=== PATIENT | male | born 1940 | race Caucasian/White ===

== ENCOUNTER → 2016-06-08 | Outpatient (CLI) | payer MEDICARE ==
[2016-06-08 11:33] LABS: ALT 37 U/L (21-72); AST 21 U/L (17-59); Alkaline Phosphatase 87 U/L (38-126); Anion Gap 10 mmol/L; Blood Urea Nitrogen 18 mg/dL (9-20); Calcium 8.7 mg/dL (8.4-10.2); Carbon Dioxide 25 mmol/L (22-30); Chloride 106 mmol/L (98-107); Cholesterol 190 mg/dL (<200); Glucose 98 mg/dL (74-99); HDL Cholesterol 45 mg/dL (40-60); Non-African American GFR(MDRD) >60 (>60 ml/min/1.73 sqM); Potassium 4.5 mmol/L (3.5-5.1); Sodium 141 mmol/L (137-145); Total Bilirubin 0.7 mg/dL (0.2-1.3); Total Protein 6.6 g/dL (6.3-8.2); Triglycerides 121 mg/dL (<150)
== END | disposition home or self-care (01) ==
LOC: LABWHC1 10:42
PROVIDERS: ATTEND Internal Medicine Interventional Cardiology
DX: E78.2 Mixed hyperlipidemia (principal)
CPT/HCPCS: 36415; 80053; 80061

== ENCOUNTER → 2016-12-30 | Outpatient (CLI) | payer MEDICARE ==
[2016-12-30 10:43] LABS: ALT 37 U/L (21-72); AST 24 U/L (17-59); Cholesterol 146 mg/dL (<200); HDL Cholesterol 48 mg/dL (40-60); Triglycerides 77 mg/dL (<150)
== END | disposition home or self-care (01) ==
LOC: LABWHC1 09:56
PROVIDERS: ATTEND Internal Medicine Interventional Cardiology
DX: E78.2 Mixed hyperlipidemia (principal)
CPT/HCPCS: 36415; 80061; 84450; 84460

== ENCOUNTER → 2017-03-29 | Outpatient (CLI) | payer MEDICARE ==
[2017-03-29 16:21] LABS: CH 32.5; CHCM 33.1; HCT 46.5 % (39.0-53.0); HDW 2.62; MCHC 32.3 g/dL (31.0-37.0); MCV 98.9 fL (80.0-100.0); Mean Platelet Volume 6.6; RDW 13.6 % (11.5-15.5); WBC 7.5 k/uL (3.8-10.6)
[2017-03-29 16:37] LABS: ALT 39 U/L (21-72); AST 26 U/L (17-59); Alkaline Phosphatase 106 U/L (38-126); Anion Gap 8 mmol/L; Blood Urea Nitrogen 20 mg/dL (9-20); Calcium 8.9 mg/dL (8.4-10.2); Carbon Dioxide 25 mmol/L (22-30); Chloride 107 mmol/L (98-107); Glucose 95 mg/dL (74-99); Non-African American GFR(MDRD) >60 (>60 ml/min/1.73 sqM); Potassium 4.7 mmol/L (3.5-5.1); Sodium 140 mmol/L (137-145); Total Bilirubin 0.4 mg/dL (0.2-1.3); Total Protein 6.9 g/dL (6.3-8.2)
== END | disposition home or self-care (01) ==
LOC: LABWHC1 16:05
PROVIDERS: ATTEND Internal Medicine Interventional Cardiology
DX: I48.1 Persistent atrial fibrillation (principal)
CPT/HCPCS: 36415; 80053; 84443; 85027

== ENCOUNTER 2017-04-13 07:28 | Day surgery (SDC) | payer MEDICARE ==
[2017-04-07 13:57] VITALS: BMI 34.9
[~2017-04-13 07:28] MED LIST: LACTATED RINGERS 1,000 ML IV SCH; SODIUM CHLORIDE 0.9% 1,000 ML IV SCH
[2017-04-13] MEDS ORDERED: LIDOCAINE 1% INJ 10MG/ML (20 ML MDV) ONE (08:52)
[2017-04-13] MEDS ORDERED: PROPOFOL 10 MG/ML 20 ML VIAL IV ONE (08:52)
[2017-04-13] MEDS ORDERED: MIDAZOLAM 2 MG/2 ML VIAL ONE (08:52)
[2017-04-13] MEDS ORDERED: SODIUM CHLORIDE 0.9% 500 ML IV ONE (09:02)
[2017-04-13] MEDS: BENZOCAINE SPRAY 1 CAN MUCOUS MEM ONE ×2 (09:16→09:24)
[2017-04-13] MEDS ORDERED: ACETAMINOPHEN TAB 500 MG TAB PO PRN (09:53)
[2017-04-13] MEDS ORDERED: ISOSORBIDE MONONITRATE ER 30 MG TAB.ER.24H PO PRN (09:53)
[2017-04-13] MEDS ORDERED: NITROGLYCERIN SL TABS 0.4 MG TAB SUBLINGUAL PRN (09:53)
[2017-04-13] MEDS ORDERED: LISINOPRIL 5 MG TAB PO PRN (09:53)
[2017-04-13] MEDS ORDERED: SODIUM CHLORIDE 0.9% 1,000 ML IV SCH (10:00)
[2017-04-13 10:08] VITALS: TEMP 97
[2017-04-13 10:09] VITALS: RESP 16
--- NOTE | 2017-04-13 10:32 | ECHOT ---
TRANSESOPHAGEAL ECHOCARDIOGRAM INDICATION: Evaluation of the left atrial appendage. PROCEDURE: After explaining the procedure to the patient, it's risks and complications, after obtaining sedated state per Anesthesia Department, the probe was introduced into the esophagus without difficulty. Images were obtained. Following that, the probe was removed. There was no immediate complication. FINDINGS: Left atrial size is dilated. Spontaneous contrast was noted. Left atrial appendage appears to be normal. Left ventricular size is normal. There is evidence of mild global hypokinesis. Estimated ejection fraction 45% to 50%. The aortic valve with mild fibrocalcific change with the cusp with preserved opening. Mitral valve, tricuspid, and pulmonic valve appear to be normal. Descending thoracic aorta appears to be normal. No pericardial effusion was noted. Contrast bubble study showed no shunting across the interatrial septum. Doppler pulse wave obtained and revealed mild mitral, with moderate tricuspid regurgitation and no evidence of pulmonary hypertension. Mild pulmonic regurgitation was noted. There was no shunting by color Doppler study. CONCLUSION: 1. Dilated left atrium with spontaneous contrast and normal appearance of left atrial appendage. 2. Normal left ventricular size with mild global hypokinesis. 3. Mild mitral with moderate tricuspid regurgitation and mild pulmonary regurgitation. 4. No shunting across the intra-atrial septum. MMODL / IJN: [id number] /
[2017-04-13] MEDS: AMIODARONE 200 MG TAB PO SCH ×2 (10:36→10:59)
--- NOTE | 2017-04-13 11:02 | CE ---
CARDIAC ELECTROPHYSIOLOGY REPORT INDICATION: Atrial fibrillation. PROCEDURE: After explaining the procedure to the patient, it's risks and complication and after obtaining sedated state by the Anesthesia Department, a synchronized biphasic cardioversion using 200, 300 and 360 joules were performed with inability to restore sinus mechanism. There was no immediate complication. LUCIANO / JOSE ANGEL: [id number] /
[2017-04-13 16:50] VITALS: BP 160/80; PULSE 60
[2017-04-13] MEDS ORDERED: METOPROLOL SUCCINATE (ER) 50 MG TAB.ER.24H PO SCH (21:00)
[2017-04-13] MEDS ORDERED: NON-FORMULARY DRUG (Rivaroxaban [Xarelto] 20 MG) PO SCH (21:00)
[2017-04-13] MEDS ORDERED: NON-FORMULARY DRUG (Aspirin Ec 81 MG) PO SCH (21:00)
[2017-04-13] MEDS ORDERED: [UNRECOGNIZED DRUG - OTHER] PO SCH (21:00)
[2017-04-13] MEDS ORDERED: PRAVASTATIN SODIUM 20 MG TAB PO SCH (21:00)
[2017-04-14] MEDS ORDERED: amLODIPine 10 MG TAB PO SCH (09:00)
[2017-04-14] MEDS ORDERED: NON-FORMULARY DRUG (Calcium Carbonate [Calcium] 1 TAB) PO SCH (09:00)
[2017-04-14] MEDS ORDERED: [UNRECOGNIZED DRUG - OTHER] PO SCH (09:00)
[2017-04-14] MEDS ORDERED: UBIDECARENONE PO SCH (09:00)
== END 2017-04-13 11:45 | disposition home or self-care (01) ==
LOC: CATHCVL 07:28
PROVIDERS: ATTEND Internal Medicine Interventional Cardiology
DX: I48.1 Persistent atrial fibrillation (principal); I08.1 Rheumatic disorders of both mitral and tricuspid valves; I37.1 Nonrheumatic pulmonary valve insufficiency; I25.10 Atherosclerotic heart disease of native coronary artery without angina pectoris; Z95.5 Presence of coronary angioplasty implant and graft; I10 Essential (primary) hypertension; E78.5 Hyperlipidemia, unspecified; Z82.49 Family history of ischemic heart disease and other diseases of the circulatory system; G47.30 Sleep apnea, unspecified; Z99.89 Dependence on other enabling machines and devices; Z79.01 Long term (current) use of anticoagulants; Z79.82 Long term (current) use of aspirin; Z79.899 Other long term (current) drug therapy; Z88.0 Allergy status to penicillin; Z88.8 Allergy status to other drugs, medicaments and biological substances
CPT/HCPCS: 93312; 93320; 93325; 92960; J2250; J2001; J2704

== ENCOUNTER → 2017-08-08 | Outpatient (CLI) | payer MEDICARE ==
[2017-08-08 10:40] LABS: HCT 45.2 % (39.0-53.0); HGB 14.7 gm/dL (13.0-17.5); MCH 31.1 pg (25.0-35.0); MCHC 32.6 g/dL (31.0-37.0); MCV 95.7 fL (80.0-100.0); Mean Platelet Volume 7.1; Platelet Count 143 k/uL (150-450); RBC 4.73 m/uL (4.30-5.90); WBC 6.5 k/uL (3.8-10.6)
[2017-08-08 10:46] LABS: Anion Gap 9 mmol/L; Blood Urea Nitrogen 20 mg/dL (9-20); Calcium 8.8 mg/dL (8.4-10.2); Carbon Dioxide 30 mmol/L (22-30); Chloride 103 mmol/L (98-107); Glucose 103 mg/dL (74-99); Potassium 4.6 mmol/L (3.5-5.1); Sodium 142 mmol/L (137-145)
== END | disposition home or self-care (01) ==
LOC: LABWHC1 10:03
PROVIDERS: ATTEND Internal Medicine Clinical Cardiac Electrophysiology
DX: I48.1 Persistent atrial fibrillation (principal); I42.8 Other cardiomyopathies
CPT/HCPCS: 36415; 80048; 85027

== ENCOUNTER 2017-08-22 10:45 | Day surgery (SDC) | payer MEDICARE ==
[2017-08-16 12:24] VITALS: BMI 34.7
[~2017-08-22 10:45] MED LIST changes: +MIDAZOLAM 2 MG/2 ML VIAL IV PRN; +fentaNYL (PF) 50 MCG/ML 2 ML AMP IV PRN
[2017-08-22] MEDS ORDERED: HEPARIN SODIUM,PORCINE 5,000 UNIT/ML 1 ML VIAL ONE (12:09)
[2017-08-22] MEDS ORDERED: PROTAMINE SULFATE 10 MG/ML 5 ML VIAL IV ONE (12:09)
[2017-08-22] MEDS ORDERED: fentaNYL (PF) 50 MCG/ML 2 ML AMP ONE (12:09)
[2017-08-22] MEDS ORDERED: ePHEDrine SULFATE/0.9% NACL/PF 50 MG/5 ML SYRINGE IV ONE (12:09)
[2017-08-22] MEDS ORDERED: MIDAZOLAM 2 MG/2 ML VIAL ONE (12:09)
[2017-08-22] MEDS ORDERED: PROPOFOL 10 MG/ML 20 ML VIAL IV ONE (12:09)
[2017-08-22] MEDS ORDERED: FUROSEMIDE 10 MG/ML 2 ML VIAL ONE (12:09)
[2017-08-22] MEDS ORDERED: SUCCINYLCHOLINE CHLORIDE 100 MG/5 ML SYR IV ONE (12:09)
[2017-08-22] MEDS ORDERED: LIDOCAINE 1% INJ 10MG/ML (20 ML MDV) ONE (12:09)
[2017-08-22] MEDS ORDERED: HEPARIN SOD,PORK IN 0.45% NACL 25,000 UNIT in 0.45% NACL 1 500ML.BAG IV ONE (13:45)
[2017-08-22] MEDS ORDERED: IOHEXOL 350 MG/ML (PER ML) 100ML BTL INJ ONE (16:00)
--- NOTE | 2017-08-22 16:38 | P.PCN ---
Preoperative Diagnosis: Procedures performed ([facility]I - CRYO Ablation) Invasive hemodynamic monitoring while general anesthesia, right femoral arterial line for monitoring and sampling Comprehensive diagnostic EP study with attempted arrhythmia induction CS pacing and recording Drug infusion Catheter the mapping of the tachycardia (NOT 3D mapping) Intracardiac echocardiography Pulmonary vein isolation with transseptal and comprehensive EPS, [id number] Additional linear ablation left atrial roof, [id number] Procedure details Patient was brought to the EP lab in a fasting state. Written informed consent was obtained prior to the procedure. Procedure performed under general anesthesia After initial muscle relaxant use, muscle relaxants were not given thereafter in order to assess phrenic nerve during procedure Patient prepped and draped as per protocol Full cryo-set up with standard preparation of the cryoablation tools done Femoral Venous access obtained on the right and left groins Sheaths placed Diagnostic catheters for the high right atrium, phrenic nerve stimulation and pacing, His bundle, RV and coronary sinus placed Intracardiac echo catheter placed Long sheath placed in the right atrium Left and right transseptal catheterization performed under intracardiac echo guidance Intravenous heparin with aCT above 300 Later, catheter positioning and balloon positioning under intracardiac echo Baseline measurements Initially patient was in atrial fibrillation Later PA interval 172 ms, QRS 95 ms, QT 466 ms sinus cycle length 1048 AH interval 56, HV 58 Comprehensive diagnostic EP study with drug infusion Atrial pacing performed from the high right atrium and the coronary sinus AV node Wenckebach block between 550-600 ms VA Wenckebach block less than 450 ms Transseptal catheterization performed RA pressure 15/7/11 LA pressure is 23/7/14 Transseptal catheterization performed with standard sheath. The cryoablation sheath was then placed with an over the wire exchange without any acute complications. All 4 pulmonary veins were isolated in the following sequence: Left superior followed by left inferior followed by right superior followed by right inferior The cryo-ablation balloon was placed at the os of each vein 1.5 mL of IV dye was injected to confirm an occluded vein Goal during cryoablation was to achieve -30C in the first 30 seconds. If not the balloon was repositioned to obtain this result After completion of Cryoblation with durations from 180-240 seconds, entrance block was confirmed with the Attain circular catheter in a roving fashion around the antrum of the pulmonary veins Phrenic nerve pacing was performed from the SVC, right innominate vein area and diaphragm voltage was monitored as well as manually Parameter goals for each cryo freeze -30C by 30 seconds -40C by 60 seconds Mediated between minus 40-55 Thaw time greater than 10 seconds Balloon visualized by intracardiac echo to ensure that the proximal one third was within the left atrium/antrum Left superior pulmonary vein 2 cryo lesions 180 followed by 120 seconds Complete isolation of the left superior Left inferior pulmonary vein 2 cryo lesions 180 followed by 180 seconds Complete isolation with entrance block Right superior pulmonary vein, during phrenic nerve pacing Single cryoablation 240 seconds, time to effect less than 37 seconds Right inferior pulmonary vein, during phrenic nerve pacing Single cryoablation of 240 seconds complete isolation Roofline/linear ablation in the left atrium 3 cryo lesions on the roof, 2 minutes each Organization of atrial fibrillation noted with Cryoblation's Fractionated electrograms along the anterior wall of the left atrium noted during mapping with achieve catheter Electrical cardioversion 360 J biphasic shock, successful conversion to sinus rhythm At the end of the procedure the Achieve catheter was once again used to check for entrance block Phrenic nerve stimulation was performed to confirm diaphragmatic stimulation the end of the procedure Cine fluoroscopy was performed at the very end of the procedure to confirm movement of both diaphragms with inspiration and expiration At the end of the procedure the patient was extubated Heparin was reversed Venous sheaths were removed and hemostasis assured Result Successful pulmonary vein isolation using cryo-ablation Complete entrance block in all 4 veins confirmed No evidence for phrenic nerve injury No significant drop in esophageal temperature. Esophageal deflection not needed Roofline made in the left atrial roof. Drop in temperature with leftward cryo lesion on the roof. Esophagus deflected
[2017-08-22] MEDS ORDERED: ACETAMINOPHEN TAB 325 MG TAB PO PRN (17:29)
[2017-08-22] MEDS ORDERED: HYDROcodone/APAP 5-325MG 1 EACH TAB PO PRN (17:29)
[2017-08-22] MEDS ORDERED: ACETAMINOPHEN IV (For NPO) 1,000 MG in EMPTY BAG 1 BAG IVPB ONE (17:29)
[2017-08-22] MEDS ORDERED: ISOSORBIDE MONONITRATE ER 30 MG TAB.ER.24H PO PRN (17:30)
[2017-08-22] MEDS ORDERED: LISINOPRIL 5 MG TAB PO PRN (17:30)
[2017-08-22] MEDS ORDERED: PANTOPRAZOLE 40 MG TABLET PO PRN (17:30)
[2017-08-22] MEDS ORDERED: RIVAROXABAN 20 MG TAB PO SCH (21:00)
[2017-08-22] MEDS ORDERED: ASPIRIN 81 MG PO SCH (21:00)
[2017-08-22] MEDS ORDERED: METOPROLOL SUCCINATE (ER) 25 MG TAB.ER.24H PO SCH (21:00)
[2017-08-22] MEDS: PRAVASTATIN SODIUM 20 MG TAB PO SCH (21:56)
[2017-08-22] MEDS: AMIODARONE 100 MG TAB PO SCH (21:56)
[2017-08-23] MEDS: AMIODARONE 100 MG TAB PO SCH (08:17)
[2017-08-23] MEDS: PRAVASTATIN SODIUM 20 MG TAB PO SCH (08:19)
[2017-08-23] MEDS ORDERED: amLODIPine 10 MG TAB PO SCH (09:00)
[2017-08-23] MEDS ORDERED: POTASSIUM CHLORIDE ER 10 MEQ TAB.ER.PRT PO SCH (09:00)
[2017-08-23] MEDS ORDERED: METOPROLOL SUCCINATE (ER) 25 MG TAB.ER.24H PO SCH (09:00)
[2017-08-23] MEDS ORDERED: FUROSEMIDE 20 MG TAB PO SCH (09:00)
--- NOTE | 2017-08-23 13:20 | P.DS ---
Providers Attending physician: Apollo Garland Primary care physician: Rico Jiménez [facility] Course: Patient is doing well from a chronic standpoint. He denies any chest discomfort no shortness of breath dizziness or palpitations. He did have a bit of hematuria and pain in his urethra but this is now resolved The was regular heart sounds are normal breath sounds are clear groins of healed well no rhonchi no crackles over the lung servin. No murmurs no gallop over the precordium Abdomen soft nontender No extremity edema Telemetry shows sinus rhythm Impression Persistent atrial fibrillation number symptomatic Failed electrical cardioversion x2 on amiodarone Coronary artery disease status post coronary stenting Mild cardio myopathy a 45-50% during atrial fibrillation Obstructive sleep apnea uses CPAP mask regularly Status post isolation of all 4 pulmonary veins, cryoablation Status post roofline in the left atrium Fractionated signals along the anterior wall of the left atrium Plan Continue antihypertensive therapy with amlodipine and lisinopril Continue Xarelto Continue statins and aspirin Continue statins Reduce metoprolol succinate to 25 mg by mouth daily in the morning Start amiodarone 100 mg by mouth daily Follow-up with Dr. Dr. Alexander in about [address] Jiménez as scheduled Plan - Discharge Summary Discharge Rx Participant: No New Discharge Prescriptions: New Amiodarone [Cordarone] 100 mg PO DAILY #90 tab Continue Aspirin EC [Ecotrin Low Dose] 81 mg PO HS amLODIPine BESYLATE [Norvasc] 10 mg PO QA [facility] 1 tab PO BID Acetaminophen Tab [Tylenol] 500 mg PO Q6H PRN PRN Reason: Pain Nitroglycerin (Unknown Dose) 0.4 mg SL DIRECTED PRN PRN Reason: Chest Pain Pravastatin Sodium [Pravachol] 20 mg PO BID Margaux Ana With Iron 1 gram PO DAILY Lisinopril [Zestril] 5 mg PO DAILY PRN PRN Reason: SYSTOLIC BP ABOVE 140 Isosorbide Mononitrate [Isosorbide Mononitrate ER] 30 mg PO DAILY PRN PRN Reason: CHEST PRESSURE Rivaroxaban [Xarelto] 20 mg PO HS Metoprolol Succinate (ER) [Toprol XL] 50 mg PO HS Potassium Chloride ER [K-Dur 10] 10 meq PO DAILY Furosemide [Lasix] 20 mg PO DAILY Omeprazole 20 mg PO AC-BRKFST PRN PRN Reason: Indigestion [place]-3/Dha/Epa/Fish Oil [Fish Oil 500 mg Softgel] 1 each PO DAILY Multivitamin [Men's Multi-Vitamin] 1 each PO DAILY Discharge Medication List Acetaminophen Tab [Tylenol] 500 mg PO Q6H PRN 12/17/13 [History] Aspirin EC [Ecotrin Low Dose] 81 mg PO HS 12/17/13 [History] Joint Health Complex 1 tab PO BID 12/17/13 [History] Nitroglycerin (Unknown Dose) 0.4 mg SL DIRECTED PRN 12/17/13 [History] amLODIPine BESYLATE [Norvasc] 10 mg PO QAM 12/17/13 [History] Pravastatin Sodium [Pravachol] 20 mg PO BID 03/10/16 [History] Margaux Ana With Iron 1 gram PO DAILY 03/10/16 [History] Isosorbide Mononitrate [Isosorbide Mononitrate ER] 30 mg PO DAILY PRN 03/30/17 [ History] Lisinopril [Zestril] 5 mg PO DAILY PRN 03/30/17 [History] Rivaroxaban [Xarelto] 20 mg PO HS 04/13/17 [History] Furosemide [Lasix] 20 mg PO DAILY 05/18/17 [History] Metoprolol Succinate (ER) [Toprol XL] 50 mg PO HS 05/18/17 [History] Potassium Chloride ER [K-Dur 10] 10 meq PO DAILY 05/18/17 [History] Multivitamin [Men's Multi-Vitamin] 1 each PO DAILY 08/16/17 [History] [place]-3/Dha/Epa/Fish Oil [Fish Oil 500 mg Softgel] 1 each PO DAILY 08/16/17 [ History] Omeprazole 20 mg PO AC-BRKFST PRN 08/16/17 [History] Amiodarone [Cordarone] 100 mg PO DAILY #90 tab 08/23/17 [Rx] Follow up Appointment(s)/Referral(s): Annalee Alexnader MD [STAFF PHYSICIAN] - 1 Week (Appointment made for groin check on TuesdayAugust 30 @ 10:30am.) Rico Jiménez DO [Primary Care Provider] - 3 Weeks Activity/Diet/Wound Care/Special Instructions: Post EP study - Ablation instructions 1. Keep access sites dry for 2 days. 2. No heavy lifting or straining for 2 days. 3. Avoid bending the hips repeatedly for 2 days. 4. You may go up and down stairs slowly Call if the following is noted 1. Bleeding, increasing swelling or pain at the access sites. 2. Increasing chest discomfort, especially upon taking a deep breath. 3. Increasing shortness of breath, at rest or with exertion. 4. Undue cough / phlegm 5. Difficulty or pain while swallowing. 6. Pain or change in color in the extremities. 7. Fever, chills, rigors. 8. Increasing headache or neurologic symptoms. 9. Dizziness, fainting, palpitations Continue Xarelto lifelong
[2017-08-23 15:50] VITALS: BP 133/63; PULSE 70; RESP 17; TEMP 98.2
[2017-08-23] MEDS ORDERED: METOPROLOL SUCCINATE (ER) 50 MG TAB.ER.24H PO SCH (21:00)
== END 2017-08-23 18:26 | disposition home or self-care (01) ==
LOC: CATHEP 10:45 → 3OBS 17:24 → CATHEP 08-23 18:26
PROVIDERS: ATTEND Internal Medicine Clinical Cardiac Electrophysiology
DX: I48.1 Persistent atrial fibrillation (principal); R31.9 Hematuria, unspecified; I25.10 Atherosclerotic heart disease of native coronary artery without angina pectoris; Z95.5 Presence of coronary angioplasty implant and graft; G47.33 Obstructive sleep apnea (adult) (pediatric); Z99.89 Dependence on other enabling machines and devices; I42.9 Cardiomyopathy, unspecified; I10 Essential (primary) hypertension; E78.2 Mixed hyperlipidemia; K21.9 Gastro-esophageal reflux disease without esophagitis; Z79.01 Long term (current) use of anticoagulants; Z79.82 Long term (current) use of aspirin; Z79.899 Other long term (current) drug therapy; Z79.02 Long term (current) use of antithrombotics/antiplatelets; Z82.49 Family history of ischemic heart disease and other diseases of the circulatory system; Z88.0 Allergy status to penicillin; Z88.8 Allergy status to other drugs, medicaments and biological substances; Z88.7 Allergy status to serum and vaccine
CPT/HCPCS: 85347; 93662; 93609; 93656; 92960; C1769 ×4; C1894 ×2; C1730 ×3; C1759; C1893; C1733; C1766; J2250; J2720; J1644 ×2; J1940; Q9967; J2001; J3010; J0330; J2704

== ENCOUNTER → 2017-09-29 | Outpatient (CLI) | payer MEDICARE ==
[2017-09-29 13:47] LABS: Potassium 4.4 mmol/L (3.5-5.1); Total Bilirubin 0.7 mg/dL (0.2-1.3); Total Protein 6.5 g/dL (6.3-8.2)
== END | disposition home or self-care (01) ==
LOC: LABWHC1 12:16
PROVIDERS: ATTEND Internal Medicine Interventional Cardiology
DX: E78.2 Mixed hyperlipidemia (principal)
CPT/HCPCS: 36415; 80053; 80061

== ENCOUNTER 2017-10-18 05:58 | Day surgery (SDC) | payer MEDICARE ==
[2017-10-14 08:55] VITALS: BMI 36.1
[2017-10-18] MEDS ORDERED: SODIUM CHLORIDE 0.9% 1,000 ML IV SCH ×2 (06:02→07:30)
[2017-10-18] MEDS ORDERED: PROPOFOL 10 MG/ML 20 ML VIAL IV ONE (06:56)
[2017-10-18] MEDS ORDERED: fentaNYL (PF) 50 MCG/ML 2 ML AMP ONE (06:56)
[2017-10-18] MEDS ORDERED: LIDOCAINE 1% INJ 10MG/ML (20 ML MDV) ONE (06:56)
[2017-10-18] MEDS ORDERED: SODIUM CHLORIDE 0.9% 500 ML IV ONE ×2 (07:03)
[2017-10-18] MEDS ORDERED: NON-FORMULARY DRUG (Omeprazole [Omeprazole] 20 MG) PO PRN (07:31)
[2017-10-18] MEDS ORDERED: ACETAMINOPHEN TAB 500 MG TAB PO PRN (07:31)
[2017-10-18] MEDS ORDERED: NITROGLYCERIN SL TABS 0.4 MG TAB SUBLINGUAL PRN (07:31)
[2017-10-18 07:42] VITALS: TEMP 97.8
--- NOTE | 2017-10-18 08:19 | CE ---
CARDIAC ELECTROPHYSIOLOGY REPORT CARDIOVERSION PROCEDURE NOTE: INDICATION: Atrial fibrillation. PROCEDURE: After explaining the procedure to the patient, its risks and complications, blood pressure, heart rate and O2 saturation were monitored. After obtaining sedated state per Anesthesia Department, a synchronized biphasic cardioversion using 200 joules was unsuccessful in restoring sinus mechanism. Second cardioversion using 275 synchronized joules were successful in restoring sinus mechanism. There was no immediate complication. LUCIANO / REEDN: [id number] /
[2017-10-18 08:51] VITALS: PULSE 66
[2017-10-18 08:54] VITALS: RESP 18
[2017-10-18] MEDS ORDERED: [UNRECOGNIZED DRUG - OTHER] PO SCH (09:00)
[2017-10-18] MEDS ORDERED: FISH OIL PO SCH (09:00)
[2017-10-18] MEDS ORDERED: ISOSORBIDE MONONITRATE ER 30 MG TAB.ER.24H PO SCH (09:00)
[2017-10-18] MEDS ORDERED: FUROSEMIDE 20 MG TAB PO SCH (09:00)
[2017-10-18] MEDS ORDERED: AMIODARONE 100 MG TAB PO SCH (09:00)
[2017-10-18] MEDS ORDERED: [UNRECOGNIZED DRUG - OTHER] PO SCH (09:00)
[2017-10-18] MEDS ORDERED: POTASSIUM CHLORIDE ER 10 MEQ TAB.ER.PRT PO SCH (09:00)
[2017-10-18] MEDS ORDERED: PRAVASTATIN SODIUM 20 MG TAB PO SCH (09:00)
[2017-10-18] MEDS ORDERED: LISINOPRIL 5 MG TAB PO SCH (09:00)
[2017-10-18] MEDS ORDERED: DHA PO SCH (09:00)
[2017-10-18] MEDS ORDERED: EPA PO SCH (09:00)
[2017-10-18] MEDS ORDERED: NON-FORMULARY DRUG (Multivitamin [Men's Multi-Vitamin] 1 EACH) PO SCH (09:00)
[2017-10-18] MEDS ORDERED: amLODIPine 10 MG TAB PO SCH (09:00)
[2017-10-18] MEDS ORDERED: OMEGA PO SCH (09:00)
[2017-10-18 09:43] VITALS: BP 118/72
[2017-10-18] MEDS ORDERED: METOPROLOL SUCCINATE (ER) 25 MG TAB.ER.24H PO SCH (21:00)
[2017-10-18] MEDS ORDERED: NON-FORMULARY DRUG (Aspirin Ec 81 MG) PO SCH (21:00)
[2017-10-18] MEDS ORDERED: RIVAROXABAN 20 MG TAB PO SCH (21:00)
== END 2017-10-18 09:35 | disposition home or self-care (01) ==
LOC: CATHCVL 05:58
PROVIDERS: ATTEND Internal Medicine Interventional Cardiology
DX: I48.1 Persistent atrial fibrillation (principal); R00.1 Bradycardia, unspecified; I44.0 Atrioventricular block, first degree; I25.10 Atherosclerotic heart disease of native coronary artery without angina pectoris; E78.2 Mixed hyperlipidemia; I10 Essential (primary) hypertension; G47.33 Obstructive sleep apnea (adult) (pediatric); M19.90 Unspecified osteoarthritis, unspecified site; H91.90 Unspecified hearing loss, unspecified ear; K21.9 Gastro-esophageal reflux disease without esophagitis; I25.2 Old myocardial infarction; Z99.89 Dependence on other enabling machines and devices; Z95.5 Presence of coronary angioplasty implant and graft; Z82.49 Family history of ischemic heart disease and other diseases of the circulatory system; Z79.01 Long term (current) use of anticoagulants; Z79.82 Long term (current) use of aspirin; Z79.899 Other long term (current) drug therapy; Z90.49 Acquired absence of other specified parts of digestive tract; Z88.0 Allergy status to penicillin; Z88.8 Allergy status to other drugs, medicaments and biological substances; Z88.7 Allergy status to serum and vaccine
CPT/HCPCS: 92960; J2001; J3010; J2704; 93005

== ENCOUNTER → 2018-01-18 | Outpatient (CLI) | payer MEDICARE ==
[2018-01-18 11:01] LABS: Albumin 3.9 g/dL (3.5-5.0); Calcium 8.8 mg/dL (8.4-10.2); Potassium 4.4 mmol/L (3.5-5.1); Total Bilirubin 0.7 mg/dL (0.2-1.3); Total Protein 6.6 g/dL (6.3-8.2)
== END | disposition home or self-care (01) ==
LOC: LABWHC1 09:58
PROVIDERS: ATTEND Internal Medicine Interventional Cardiology
DX: E78.2 Mixed hyperlipidemia (principal); D48.1 Neoplasm of uncertain behavior of connective and other soft tissue
CPT/HCPCS: 36415; 80053; 80061; 84443

== ENCOUNTER 2018-12-06 07:54 | Day surgery (SDC) | payer MEDICARE ==
[2018-12-04 10:49] VITALS: BMI 31.3
[~2018-12-06 07:54] MED LIST changes: +LIDOCAINE 1% 20 ML VIAL (10MG/ML) FOR IV START INTRADERMA PRN; +LIDOCAINE 1% INJ 10MG/ML (20 ML MDV) ONE; -MIDAZOLAM 2 MG/2 ML VIAL IV PRN; +PROPOFOL 10 MG/ML 20 ML VIAL IV ONE; -SODIUM CHLORIDE 0.9% 1,000 ML IV SCH; -fentaNYL (PF) 50 MCG/ML 2 ML AMP IV PRN
[2018-12-06] MEDS ORDERED: LACTATED RINGERS 1,000 ML IV ONE (08:21)
--- NOTE | 2018-12-06 08:30 | P.GSHP ---
History of Present Illness H&P Date: 12/06/18 Chief Complaint: Screening, history of adenomatous colon polyp 77-year-old male presents for colonoscopy. Last colonoscopy 2011. Was found to have a descending colon polyp that was excised. History of previous adenomatous as well. No new complaints. Past Medical History Past Medical History: Atrial Fibrillation, Chest Pain / Angina, Hearing Disorder / Deafness, Hyperlipidemia, Hypertension, Myocardial Infarction ([place]), Osteoarth ritis (OA), Pneumonia, Sleep Apnea/CPAP/BIPAP, Thyroid Disorder Additional Past Medical History / Comment(s): OH AT 28 YRS OLD. C PAP MACHINE Last Myocardial Infarction Date:: 1966 History of Any Multi-Drug Resistant Organisms: None Reported Past Surgical History: Appendectomy, Bowel Resection, Cardiac Ablation, Heart Catheterization, Heart Catheterization With Stent, Orthopedic Surgery Additional Past Surgical History / Comment(s): COLON RESECTION WITH REMOVAL OF BENIGN TUMOR, RT ROTATOR CUFF, SKIN GRAFTS TO 3RD DEGREE ADAMS ON CHEST AND RT SIDE AT 15 MONTHS OLD, CYST ON BACK OF NECK., Colonoscopy. PTCA WITH STENTS Past Anesthesia/Blood Transfusion Reactions: Previous Problems w/ Anesthesia Additional Past Anesthesia/Blood Transfusion Reaction / Comment(s): "woke up in the middle of shoulder surgery. SEEMS TO REQUIRE MORE ANESTHESIA THAN AVERAGE PERSON." PER PATIENT Date of Last Stent Placement:: 03-11-16 Smoking Status: Never smoker - Past Family History Mother Family Medical History: CVA/TIA Additional Family Medical History / Comment(s): HEART FAILUR Father Family Medical History: Coronary Artery Disease (CAD) Brother(s) Family Medical History: Coronary Artery Disease (CAD), Deep Vein Thrombosis (DVT) Medications and Allergies Home Medications Medication Instructions Recorded Confirmed Type Acetaminophen Tab [Tylenol] 500 mg PO Q6H PRN 12/17/13 12/04/18 History Aspirin EC [Ecotrin Low Dose] 81 mg PO HS 12/17/13 12/04/18 History Joint Health Complex 1 tab PO BID 12/17/13 12/04/18 History amLODIPine BESYLATE [Norvasc] 10 mg PO QAM 12/17/13 12/04/18 History Pravastatin Sodium [Pravachol] 20 mg PO BID 03/10/16 12/04/18 History Rivaroxaban [Xarelto] 20 mg PO HS 04/13/17 12/04/18 History Furosemide [Lasix] 20 mg PO BID 05/18/17 12/04/18 History Metoprolol Succinate (ER) [Toprol 25 mg PO HS 05/18/17 12/04/18 History XL] Potassium Chloride ER [K-Dur 10] 10 meq PO DAILY 05/18/17 12/04/18 History Multivitamin [Men's Multi-Vitamin] 1 each PO DAILY 08/16/17 12/04/18 History Amiodarone [Cordarone] 100 mg PO DAILY #90 tab 08/23/17 12/04/18 Rx Nitroglycerin Sl Tabs [Nitrostat] 0.4 mg SUBLINGUAL Q5M PRN 10/14/17 12/04/18 History Isosorbide Mononitrate [Isosorbide 30 mg PO DAILY #0 10/18/17 12/04/18 Rx Mononitrate ER] Levothyroxine Sodium [Synthroid] 50 mcg PO DAILY 12/04/18 12/04/18 History [place]-3 Fatty Acids/Fish Oil 1 each PO DAILY 12/04/18 12/04/18 History [[place]-3 Fish Oil 1,200 mg Sfgl] Allergies Allergy/AdvReac Type Severity Reaction Status Date / Time Penicillins Allergy Severe Anaphylaxis Verified 12/04/18 10:04 Kmosxqj-Fnn-Vkx Reductase Allergy Severe MUSCLE & Verified 12/04/18 10:04 Inhibitor JOINT PAIN Tetanus Vaccines and Toxoid Allergy Unknown Swelling Verified 12/04/18 10:04 [Tetanus Vaccines & Toxoid] Surgical - Exam Physical exam: General: Well-developed, well-nourished HEENT: Normocephalic, sclerae nonicteric Abdomen: Nontender, nondistended Extremities: No edema Neuro: Alert and oriented Assessment and Plan (1) Colon cancer screening Narrative/Plan: Will proceed with colonoscopy at this time Current Visit: Yes Status: Acute Code(s): Z12.11 - ENCOUNTER FOR SCREENING FOR MALIGNANT NEOPLASM OF COLON SNOMED Code(s): 521966078
[2018-12-06 08:35] VITALS: TEMP 97.3
--- NOTE | 2018-12-06 08:53 | P.PCN ---
Date of Procedure: 12/06/18 Procedure(s) Performed: PREOPERATIVE DIAGNOSIS: Colon cancer screening POSTOPERATIVE DIAGNOSIS: Mild diverticulosis, status post right colectomy PROCEDURE: Colonoscopy ANESTHESIA: MAC SURGEON: Kal Salvador M.D. SPECIMENS: None ENDOSCOPIC PROCEDURE: The patient was placed on the endoscopy table in the left decubitus position. The Olympus colonoscope was inserted into the anus and passed under direct visualization to the mid transverse colon. The anastomosis was widely patent. No abnormalities were identified there. The remainder of the transverse descending sigmoid and rectum appeared normal. There was mild diverticulosis present. Digital rectal examination was normal. The patient was taken to the recovery room in stable condition per anesthesia guidelines. RECOMMENDATIONS: Increase fiber. Follow-up colonoscopy 5 years.
[2018-12-06 09:12] VITALS: BP 150/80; PULSE 55; RESP 18
== END 2018-12-06 09:48 | disposition home or self-care (01) ==
LOC: ORWHC2ENDO 07:54
PROVIDERS: ATTEND Surgery
DX: Z12.11 Encounter for screening for malignant neoplasm of colon (principal); K57.30 Diverticulosis of large intestine without perforation or abscess without bleeding; I10 Essential (primary) hypertension; I48.91 Unspecified atrial fibrillation; I25.119 Atherosclerotic heart disease of native coronary artery with unspecified angina pectoris; I25.2 Old myocardial infarction; E07.9 Disorder of thyroid, unspecified; E78.5 Hyperlipidemia, unspecified; H91.90 Unspecified hearing loss, unspecified ear; M19.90 Unspecified osteoarthritis, unspecified site; Z90.49 Acquired absence of other specified parts of digestive tract; G47.33 Obstructive sleep apnea (adult) (pediatric); Z95.5 Presence of coronary angioplasty implant and graft; Z86.010 Personal history of colon polyps; Z79.891 Long term (current) use of opiate analgesic; Z79.82 Long term (current) use of aspirin; Z79.890 Hormone replacement therapy; Z79.899 Other long term (current) drug therapy; Z79.01 Long term (current) use of anticoagulants; Z88.0 Allergy status to penicillin; Z88.8 Allergy status to other drugs, medicaments and biological substances; Z88.7 Allergy status to serum and vaccine; Z99.89 Dependence on other enabling machines and devices; Z82.49 Family history of ischemic heart disease and other diseases of the circulatory system
CPT/HCPCS: G0105; J2001; J2704

== ENCOUNTER → 2019-10-18 | Outpatient (CLI) | payer MEDICARE ==
--- NOTE | 2019-10-19 07:09 | CT ---
"EXAMINATION TYPE: CT abdomen pelvis wo con DATE OF EXAM: 10/18/2019 HISTORY: Hematuria and difficulty urinating CT DLP: 1034 mGycm. Automated Exposure Control for Dose Reduction was Utilized. TECHNIQUE: CT scan of the abdomen and pelvis is performed without oral or IV contrast. COMPARISON: NONE FINDINGS: Within the limitations of a non-contrast study, the following observations are made. LUNG BASES: There are suspected coronary artery stent in the RCA distribution. Distal to this coronar y artery calcifications are present in the dominant right coronary artery. Patchy areas of groundglas s opacity noted in the periphery of the visualized lower lungs should be correlated clinically for at ypical infections including Covid pneumonia in this current environment. LIVER/GB: No significant abnormality is appreciated. PANCREAS: No significant abnormality is seen. SPLEEN: Occasional scattered punctate calcification throughout the spleen. ADRENALS: Low dense bilateral adrenal masses larger on the right measuring 3.1 x 1.8 cm. Hounsfield u nits less than 10 consistent with benign lipid rich adenomas. KIDNEYS: No renal calculi or hydronephrosis is seen bilaterally. No intraluminal calculi in poorly di stended bladder. Mild concentric wall thickening presumed related to outlet obstruction from BPH. BOWEL: Diverticula in the left and sigmoid colon. Surgical changes from right-sided partial colectomy and side to side small bowel anastomosis identified. No suspicious small or large bowel dilatation. GENITAL ORGANS: Markedly enlarged prostate gland bulging on bladder base consistent with BPH. Some ri ght central posterior calcifications incidentally seen. LYMPH NODES: No greater than 1cm abdominal or pelvic lymph nodes are appreciated. OSSEOUS STRUCTURES: Moderate multilevel spurring and disc space narrowing throughout the thoracolumba r spine. Multilevel vacuum disc phenomenon. Most prominent disc space narrowing L4-L5 level. Moderate to severe narrowing in both hip joints. OTHER: Tiny fat-containing left inguinal hernia. Overlying vertical scar in the midline of the anteri or abdominal wall. Mild to moderate calcified plaque of the abdominal aorta extends into branch vesse ls. IMPRESSION: 1. Source of hematuria not identified. Further investigation with contrast-enhanced CT is advised to further assess. 2. Significantly enlarged prostate consistent with BPH. 3. Small multifocal areas of groundglass opacity in the visualized periphery of the lung bases, canno t exclude atypical infection such as Covid type pneumonia in current clinical climate. Correlate clin ically. A Yellow level critical message alert has been initiated for Dominick Estevez MD via the [employer] | Critical Results System on 10/19/2019 7:06 AM. This message alert has been sent to Manuel Elliott via the preferences provided by the clinician for the receipt of Radiology Critical Findings. Dorina LaZure [employer] ID [id number]."
== END | disposition home or self-care (01) ==
LOC: RADCTMAIN 15:03
PROVIDERS: ATTEND Urology
DX: N40.0 Benign prostatic hyperplasia without lower urinary tract symptoms (principal); Z88.0 Allergy status to penicillin; Z88.7 Allergy status to serum and vaccine; Z88.8 Allergy status to other drugs, medicaments and biological substances
CPT/HCPCS: 74176

== ENCOUNTER → 2019-10-31 | Outpatient (CLI) | payer MEDICARE | END | disposition home or self-care (01) | LOC: LABWHC1 07:36 | PROVIDERS: ATTEND Family Medicine | DX: R05 Cough (principal) ==

== ENCOUNTER → 2019-12-18 | Outpatient (CLI) | payer MEDICARE ==
[2019-12-18 17:48] LABS: African American GFR (CKD) 95.1 (60.0-200.0); Albumin 4.1 g/dL (3.80-4.90); Albumin/Globulin Ratio 1.86 (1.60-3.17); Anion Gap 8.5 mmol/L (4.00-12.00); BUN/Creat Ratio 24.44 Ratio (12.00-20.00); Calcium 8.5 mg/dL (8.7-10.3); Carbon Dioxide 22.5 mmol/L (21.6-31.8); Chol/HDL Ratio 2.54; Globulin 2.2 g/dL (1.6-3.3); LDL Cholesterol,Calculated 68.6 mg/dL (0.0-131.0); Non-African American GFR(CKD) 82.1 (60.0-200.0); Potassium 4.5 mmol/L (3.5-5.5); Total Bilirubin 0.6 mg/dL (0.3-1.2); Total Protein 6.3 g/dL (6.2-8.2); VLDL Calculation 11.4 mg/dL (5.00-40.00)
== END | disposition home or self-care (01) ==
LOC: LABWHC1 09:57
PROVIDERS: ATTEND Nurse Practitioner Adult Health
DX: E78.2 Mixed hyperlipidemia (principal); I10 Essential (primary) hypertension
CPT/HCPCS: 36415; 80053; 80061

== ENCOUNTER → 2020-08-14 | Outpatient (CLI) | payer MEDICARE ==
[2020-08-15 03:48] LABS: African American GFR (CKD) 95.1 (60.0-200.0); Albumin 4.2 g/dL (3.80-4.90); Albumin/Globulin Ratio 2.1 (1.60-3.17); Anion Gap 11.9 mmol/L (4.00-12.00); BUN/Creat Ratio 25.56 Ratio (12.00-20.00); Calcium 9.1 mg/dL (8.7-10.3); Carbon Dioxide 21.1 mmol/L (21.6-31.8); Chol/HDL Ratio 3.02; LDL Cholesterol,Calculated 88.8 mg/dL (0.0-131.0); Non-African American GFR(CKD) 82.1 (60.0-200.0); Potassium 4.5 mmol/L (3.5-5.5); Total Bilirubin 0.7 mg/dL (0.2-1.2); Total Protein 6.2 g/dL (6.2-8.2); VLDL Calculation 12.2 mg/dL (5.00-40.00)
== END | disposition home or self-care (01) ==
LOC: LABWHC1 10:20
PROVIDERS: ATTEND Nurse Practitioner Adult Health
DX: E78.2 Mixed hyperlipidemia (principal); I10 Essential (primary) hypertension
CPT/HCPCS: 36415; 80053; 80061

== ENCOUNTER → 2021-01-30 | Outpatient (CLI) | payer MEDICARE ==
[2021-01-30 20:49] LABS: African American GFR (CKD) 83.2 (60.0-200.0); Albumin 4.3 g/dL (3.80-4.90); Albumin/Globulin Ratio 1.79 (1.60-3.17); Anion Gap 8.3 mmol/L (4.00-12.00); Calcium 8.7 mg/dL (8.7-10.3); Carbon Dioxide 23.7 mmol/L (21.6-31.8); Chol/HDL Ratio 2.89; Globulin 2.4 g/dL (1.6-3.3); LDL Cholesterol,Calculated 92.4 mg/dL (0.0-131.0); Non-African American GFR(CKD) 71.8 (60.0-200.0); Total Bilirubin 0.6 mg/dL (0.3-1.2); Total Protein 6.7 g/dL (6.2-8.2); VLDL Calculation 11.6 mg/dL (5.00-40.00)
== END | disposition home or self-care (01) ==
LOC: LABWHC1 09:31
PROVIDERS: ATTEND Internal Medicine Interventional Cardiology
DX: E78.2 Mixed hyperlipidemia (principal); I48.19 Other persistent atrial fibrillation
CPT/HCPCS: 36415; 80053; 80061; 84443

== ENCOUNTER → 2022-01-08 | Outpatient (CLI) | payer MEDICARE ==
[2022-01-08 14:14] LABS: ALT 13 U/L (10-49); AST 21 U/L (14-35); African American GFR (CKD) 93.8 (60.0-200.0); Albumin 4.1 g/dL (3.8-4.9); Albumin/Globulin Ratio 1.71 (1.60-3.17); Alkaline Phosphatase 82 U/L (41-126); BUN/Creat Ratio 16.44 Ratio (12.00-20.00); Blood Urea Nitrogen 14.8 mg/dL (9.0-27.0); Calcium 8.6 mg/dL (8.7-10.3); Carbon Dioxide 22.9 mmol/L (20.0-27.5); Chloride 106 mmol/L (96-109); Chol/HDL Ratio 2.88 Ratio; Globulin 2.4 g/dL (1.6-3.3); Glucose 104 mg/dL (70-110); LDL Cholesterol,Calculated 90.7 mg/dL (0.0-131.0); Non-African American GFR(CKD) 80.9 (60.0-200.0); Potassium 4.1 mmol/L (3.5-5.5); Sodium 138 mmol/L (135-145); Total Protein 6.5 g/dL (6.2-8.2); VLDL Calculation 15.66 mg/dL (5.00-40.00)
== END | disposition home or self-care (01) ==
LOC: LABWHC1 08:35
PROVIDERS: ATTEND Internal Medicine Interventional Cardiology
DX: E78.2 Mixed hyperlipidemia (principal)
CPT/HCPCS: 36415; 80053; 80061

== ENCOUNTER → 2022-04-05 | Outpatient (CLI) | payer MEDICARE ==
--- NOTE | 2022-04-05 15:57 | XR ---
EXAMINATION TYPE: XR Hip Complete LT DATE OF EXAM: 04/05/2022 COMPARISON: None HISTORY: Left hip pain, fall one week prior TECHNIQUE: 2 view left FINDINGS: Femoral head articulates with the acetabulum. Joint space is preserved. No acute fracture o r dislocation is evident. IMPRESSION: 1. No acute osseous abnormality left hip.
== END | disposition home or self-care (01) ==
LOC: RADXRMAIN 13:54
PROVIDERS: ATTEND Nurse Practitioner Family
DX: M25.552 Pain in left hip (principal)
CPT/HCPCS: 73502

== ENCOUNTER → 2023-01-20 | Outpatient (CLI) | payer MEDICARE ==
--- NOTE | 2023-01-20 10:30 | CT ---
EXAMINATION TYPE: CT brain w con CT DLP: 1269 mGycm, Automated exposure control for dose reduction was used. DATE OF EXAM: 01/20/2023 10:23 AM COMPARISON: CT brain 06/20/2014. CLINICAL INDICATION:Male, 82 years old with history of R42 dizziness R53.83 fatigue; PHH, STILL, dizzine ss TECHNIQUE: Axial CT images of the brain were obtained through the uneventful administration of 100 cc of Isovue-300 intravenously One or more CT dose reduction strategies were utilized during this exami nation. Coronal and sagittal reformats reviewed. FINDINGS: Extra-axial spaces: No abnormal extra-axial fluid collections. Ventricular system: Within normal limits Cerebral parenchyma: Cerebral atrophy. No acute intraparenchymal hemorrhage or mass effect. The ryan -white junction is well differentiated. Scattered hypoattenuating areas are seen within the white mat ter. No abnormal enhancement is seen after the administration of intravenous contrast. Cerebellum: Unremarkable. Mass effect: No evidence of midline shift. Intracranial vasculature: unremarkable Soft tissues: Normal. Calvarium/osseous structures: No depressed skull fracture. Paranasal sinuses and mastoid air cells: The mastoid air cells are clear. Minimal mucosal thickening of the ethmoid sinuses. Visualized orbits: Bilateral aphakia IMPRESSION: 1. No acute intracranial process and no evidence to suggest intracranial mass. 2. Nonspecific white matter changes, likely secondary to chronic small vessel ischemic disease.
== END | disposition home or self-care (01) ==
LOC: RADCTMAIN 09:32
PROVIDERS: ATTEND Family Medicine
DX: R90.82 White matter disease, unspecified (principal); R53.83 Other fatigue
CPT/HCPCS: 70460; Q9967

== ENCOUNTER → 2023-01-25 | Outpatient (CLI) | payer MEDICARE ==
--- NOTE | 2023-01-25 11:03 | US ---
EXAMINATION TYPE: US carotid duplex BILAT DATE OF EXAM: 01/25/2023 COMPARISON: NONE CLINICAL INDICATION: Male, 82 years old with history of R53.83 FATIGUE R42 DIZZINESS R27.0 ATAXIA; di zziness when laying down, walking, fatigue, began 2 moths ago and is getting worse TECHNIQUE: Carotid duplex ultrasound examination. Indirect Doppler criteria was utilized. FINDINGS: EXAM MEASUREMENTS: RIGHT: Peak Systolic Velocity (PSV) cm/sec ----- Right CCA: 74.3 ----- Right ICA: 74.3 ----- Right ECA: 170.7 ICA/CCA ratio: 1.0 RIGHT: End Diastole cm/sec ----- Right CCA: 19.3 ----- Right ICA: 31.4 ----- Right ECA: 13.0 LEFT: Peak Systolic Velocity (PSV) cm/sec ----- Left CCA: 76.5 ----- Left ICA: 78.7 ----- Left ECA: 130.2 ICA/CCA ratio: 1.0 LEFT: End Diastole cm/sec ----- Left CCA: 25.9 ----- Left ICA: 35.8 ----- Left ECA: 17.1 VERTEBRALS (direction of flow): Right Vertebral: Antegrade Left Vertebral: Antegrade Rhythm: Normal BOW REHAIRER NOTES: Mild atherosclerotic, elevated velocities in bilateral ECAs IMPRESSION: No evidence for hemodynamically significant stenosis at this time. Criteria for Assigning % of Stenosis / Diameter reduction (Estimation based on the indirect measurements of the internal carotid artery velocities (ICA PSV). 1. Normal (no stenosis)=ICA PSV < 125 cm/s: ratio < 2.0: ICA EDV<40 cm/s. 2. Less than 50% stenosis=ICA PSV < 125 cm/s: ratio < 2.0: ICA EDV<40 cm/s. 3. 50 to 69% stenosis=ICA PSV of 125 to 230 cm/s: ration 2.0 ? 4.0: ICA EDV 40-100 cm/s. 4. Greater than 70% stenosis to near occlusion= ICA PSV > 230 cm/s: ratio > 4.0: ICA EDV > 100 cm/s. 5. Near occlusion= ICA PSV velocities may be low or undetectable: variable ratio and ICA EDV. 6. Total occlusion=unable to detect flow.
== END | disposition home or self-care (01) ==
LOC: RADUSWWP 10:14
PROVIDERS: ATTEND Family Medicine
DX: R53.83 Other fatigue (principal); R42 Dizziness and giddiness
CPT/HCPCS: 93880

== ENCOUNTER → 2023-01-26 | Outpatient (CLI) | payer MEDICARE | END | disposition home or self-care (01) | LOC: LABWHC1 10:25 | PROVIDERS: ATTEND Nurse Practitioner Adult Health | DX: R06.02 Shortness of breath (principal); R60.0 Localized edema | CPT/HCPCS: 36415; 83880 ==

== ENCOUNTER → 2023-06-13 | Outpatient (CLI) | payer MEDICARE | END | disposition home or self-care (01) | LOC: LABWHC1 14:28 | PROVIDERS: ATTEND Internal Medicine Interventional Cardiology | DX: Z53.9 Procedure and treatment not carried out, unspecified reason (principal) ==

== ENCOUNTER → 2024-02-14 | Outpatient (CLI) | payer MEDICARE ==
--- NOTE | 2024-02-14 13:17 | XR ---
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 FINDINGS: Lungs/Pleura: Asymmetric increased haziness the right lung compared to left. There is no evidence of pleural effusion, focal consolidation, or pneumothorax. Pulmonary vascularity: Unremarkable. Heart/mediastinum: Cardiomediastinal silhouette is unremarkable. Musculoskeletal: No acute osseous pathology. IMPRESSION: Increased haziness to the right lung greater than left lung which could be compatible with history of legionnaires pneumonia.
== END | disposition home or self-care (01) ==
LOC: RADXRMAIN 12:34
PROVIDERS: ATTEND Nurse Practitioner Family
DX: J15.0 Pneumonia due to Klebsiella pneumoniae
CPT/HCPCS: 71046